=== PATIENT | female | born 1980 | race Caucasian/White ===

== ENCOUNTER 2023-07-08 16:44 | Emergency (ER) | payer OTHER, SELFPAY ==
[2023-07-08 16:50] VITALS: BP 123/88; PULSE 115; RESP 24; TEMP 37.3; O2SAT 97; BMI 32.0
--- NOTE | 2023-07-08 17:10 | ED_ITS ---
HPI - General Adult General Date Seen: 07/08/23 Chief complaint: Nausea/Vomiting Stated complaint: vomiting Time Seen by Provider: 07/08/23 17:03 Source: patient and RN notes reviewed Mode of arrival: ambulatory Limitations: no limitations History of Present Illness HPI narrative: Patient is a generally healthy 43-year-old woman, she works in a school, no specific ill exposures. She woke up in the middle the night with stomach upset and has had multiple episodes of nonbloody diarrhea, generalized stomach cramping, and some dry heaves or vomiting of phlegm or saliva although she says she does not think her entire stomach contents of,. She says she feels like she would feel better if she could vomit. She has not had a fever that she knows of. They did go to [place], returned about a week and half ago but nobody else has been sick and she did not have any symptoms until last night. No previous abdominal surgeries. She does not smoke or drink. Related Data Home Medications Medication Instructions Recorded Confirmed Prilosec 07/08/23 Allergies Allergy/AdvReac Type Severity Reaction Status Date / Time No Known Drug Allergies Allergy Verified 07/08/23 16:55 Review of Systems Status of ROS: Reports: 10 or more systems reviewed and unremarkable except as noted in History and below Exam Narrative: Exam Narrative: Vital signs as noted above. In general, an alert, nontoxic woman. Head: Normocephalic, atraumatic. Eyes: Pupils are equal reactive. Extraocular movements are full. Conjunctivae are normal. ENT: Mucous membranes are moist. Throat is normal. Neck: Supple without lymphadenopathy. Heart: Tachycardic and regular. Lungs: Clear bilaterally. No increased work of breathing, crackles or wheezes. Abdomen: Soft and nondistended. Diffuse mild tenderness without rebound guarding or rigidity. Bowel sounds present. Extremities: Well perfused. No edema. No calf tenderness. Pulses intact. Neurologic: Patient is alert and oriented to person and place. Speech is fluent. Face is symmetric. Moves all extremities equally. Affect: Normal. Skin: Warm and dry. Well perfused. Const: Vital Signs, click to edit/add: Vital Signs - 24 hr 07/08/23 16:50 07/08/23 18:07 Temperature 99.1 F Pulse Rate [Pulse Oximeter] 115 H 95 Respiratory Rate 24 18 Blood Pressure [Le ft Upper Arm] 123/88 137/90 H Pulse Oximetry 97 99 Oxygen Delivery Me thod Room Air Room Air Documenting provider has reviewed patient's vital signs: yes Course Course ED Course: Will go ahead and place an IV and give some fluids, Zofran, Toradol. Check some labs. Diagnostic considerations most likely this is a viral gastroenteritis, no focal abdominal tenderness, but of labs are significantly abnormal would consider other possibilities such as appendicitis, diverticulitis, colitis, inflammatory bowel disease etcetera. Labs are overall reassuring. Her white blood cell count is minimally elevated 11.5, CRP minimally elevated at 2.2. COVID influenza and RSV are negative. LFTs are normal, platelets are 327,000 and hemoglobin is 15.1. Her potassium is mildly low at 3.3, she was mildly acidotic with a CO2 of 17 but a normal gap. Blood sugar was 114. She is feeling improved after fluids, repeat vital signs show resolution of her tachycardia. Her lactate was normal at 0.8. Abdominal exam remains benign. Her nausea has resolved with Zofran. I think it is reasonable to treat at this time for presumed viral enteritis, discussed with her that the diarrhea may persist for several days but if she has diarrhea that goes for 7-10 days she should be seen again at that time consideration of stool studies could be undertaken. If at any time she has severe pain, high fevers, bloody stools, unusual rashes etcetera she should come back to the emergency department. Clear liquids for today, advance tomorrow as able. She is comfortable with that plan. Vital Signs Vital signs: Initial Vital Signs Temperature 99.1 F 07/08/23 16:50 Temperature Source Temporal Artery Scan 07/08/23 16:50 Pulse Rate 115 H 07/08/23 16:50 Respiratory Rate 07/08/23 16:50 Blood Pressure 123/88 07/08/23 16:50 Blood Pressure Mean 99 07/08/23 16:50 Blood Pressure Position Sitting 07/08/23 16:50 Pulse Oximetry 97 07/08/23 16:50 Oxygen Delivery Method Room Air 07/08/23 16:50 Vital Signs Temperature 99.1 F 07/08/23 16:50 Pulse Rate 115 H 07/08/23 16:50 Respiratory Rate 07/08/23 16:50 Blood Pressure 123/88 07/08/23 16:50 Pulse Oximetry 97 07/08/23 16:50 Oxygen Delivery Method Room Air 07/08/23 16:50 Temperature 99.1 F 07/08/23 16:50 Pulse Rate 95 07/08/23 18:07 Respiratory Rate 18 07/08/23 18:07 Blood Pressure 137/90 H 07/08/23 18:07 Pulse Oximetry 99 07/08/23 18:07 Oxygen Delivery Method Room Air 07/08/23 18:07 Medications Administered Medications: Discontinued Medications Generic Name Dose Route Start Last Admin Trade Name Freq PRN Reason Stop Dose Admin Sodium Chloride 1,000 mls @ 1,000 mls/hr 07/08/23 17:15 07/08/23 18:08 0.9 % Sodium Chloride 1000 Ml IV 07/08/23 18:14 Infused .Q1H CATIA Infusion Ketorolac Tromethamine 15 mg 07/08/23 17:08 07/08/23 17:26 Ketorolac 15 Mg/Ml Inj IVP 07/08/23 17:09 15 mg ONCE ONE Administration Ondansetron HCl 4 mg 07/08/23 17:08 07/08/23 17:26 Ondansetron 2 Mg/Ml Inj IVP 07/08/23 17:09 4 mg ONCE ONE Administration Medical Decision Making Lab Data Labs: Lab Results 07/08/23 07/08/23 Range/Units 16:59 17:24 WBC 11.51 H (4.50-11.00) K/uL RBC 5.22 H (4.00-5.20) m/uL Hgb 15.1 (12.0-16.0) gm/dL Hct 44.3 (33.0-51.0) % MCV 85 (80-100) fL MCH 29 (26-34) pg MCHC 34 (32-36) gm/dL RDW Coeff of Amol 12.8 (11.5-15.5) % Plt Count 327 (140-440) K/uL Neut % (Auto) 84.3 H (42.0-72.0) % Lymph % (Auto) 7.4 L (20-44) % [place] % (Auto) 6.9 (0.0-11.0) % Eos % (Auto) 0.3 (0.0-7.0) % Baso % (Auto) 0.1 (0.0-3.0) % Neut # (Auto) 9.70 H (1.7-7.0) K/uL Lymph # (Auto) 0.90 (0.90-2.90) K/uL [place] # (Auto) 0.80 (0.00-0.90) K/UL Eos # (Auto) 0.00 (0.00-0.50) K/uL Baso # (Auto) 0.00 (0.00-0.30) K/uL Abs Immat Gran (auto) 0.10 (0.00-0.30) K/uL Imm/Tot Granulo (auto) 1.0 % Sodium 138 (135-149) mmol/L Potassium 3.3 L (3.6-5.1) mmol/L Chloride 108 (96-114) mmol/L Carbon Dioxide 17 L (20-32) mmol/L Anion Gap 13 (7-15) mEq/L BUN 14 (5-24) mg/dL Creatinine 0.6 (0.5-1.5) mg/dL Estimated Creat Clear 96.60 Estimated GFR 115 ml/min Glucose 114 (60-115) mg/dL Lactate 0.8 (0.5-1.9) mmol/L Calcium 8.4 (8.4-10.6) mg/dL Total Bilirubin 1.0 (0.1-1.5) mg/dL Direct Bilirubin 0.1 (0.0-0.5) mg/dL AST 24 (12-35) U/L ALT 24 (4-35) U/L Alkaline Phosphatase 54 (40-150) U/L C-Reactive Protein 2.2 H (0.5-1.0) mg/dL Total Protein 7.3 (6.0-8.3) g/dL Albumin 4.3 (3.3-5.0) g/dL SARS-CoV-2 (PCR) Negative SARS-CoV-2 (Negative) Influenza Type A (PCR) Negative PCR FLU A (Negative) Influenza Type B (PCR) Negative PCR FLU B (Negative) RSV (PCR) Negative PCR RSV (Negative) Discharge Plan Discharge Clinical Impression: Gastroenteritis Patient Disposition: Home, Self-Care Condition: Improved Instructions: Acute Diarrhea (ED) Additional Instructions: Clear liquids today, advance diet as able. Zofran if needed for nausea/vomiting. Diarrhea may persist for several days but should gradually improve. If you still have diarrhea in 7-10 days you should be seen again. Labs today are reassuring, symptoms are likely viral, but you should be seen sooner for severe abdominal pain, high fevers, unusual rashes, bloody stools or other significant changes. Activity Level: No Restrictions Discharge Diet: Regular Prescriptions: No Action Prilosec Follow Up/Referrals: Provider,Not a Local [Primary Care Provider] - Stand Alone Forms: [employer] Info Instructions
[2023-07-08 17:26] LABS: Lactate* 0.8 mmol/L (0.5-1.9)
[2023-07-08] MEDS: ONDANSETRON 2 MG/ML inj 4 MG IVP (17:26)
[2023-07-08] MEDS: KETOROLAC 15 MG/ML inj IVP (17:26)
[2023-07-08] MEDS: 0.9 % SODIUM CHLORIDE 1000 ml 1,000 ML IV (17:27)
[2023-07-08 17:37] LABS: Basophils Percent Auto 0.1 % (0.0-3.0); Eosinophils Percent Auto 0.3 % (0.0-7.0); Hematocrit 44.3 % (33.0-51.0); Hemoglobin* 15.1 gm/dL (12.0-16.0); Lymphocytes Percent Auto 7.4 % (20-44); Mean Corpuscular HGB Conc 34 gm/dL (32-36); Mean Corpuscular Hemoglobin 29 pg (26-34); Mean Corpuscular Volume 85 fL (80-100); Monocytes Percent Auto 6.9 % (0.0-11.0); Neutrophils Percent Auto 84.3 % (42.0-72.0); Platelet Count* 327 K/uL (140-440); RDW Coefficient of Variation % 12.8 % (11.5-15.5); Red Blood Count 5.22 m/uL (4.00-5.20); White Blood Count* 11.51 K/uL (4.50-11.00)
[2023-07-08 17:40] LABS: Albumin* 4.3 g/dL (3.3-5.0); Chloride* 108 mmol/L (96-114); Slide Review Reflex No
[2023-07-08 17:41] LABS: Potassium* 3.3 mmol/L (3.6-5.1); Sodium* 138 mmol/L (135-149)
[2023-07-08 17:43] LABS: Creatinine* 0.6 mg/dL (0.5-1.5); Estimated Glomerular Filt Rate 115 ml/min
[2023-07-08 17:44] LABS: Alanine Aminotransferase* 24 U/L (4-35); Alkaline Phosphatase* 54 U/L (40-150); Anion Gap 13 mEq/L (7-15); Aspartate Amino Transferase* 24 U/L (12-35); Bilirubin Direct* 0.1 mg/dL (0.0-0.5); Blood Urea Nitrogen* 14 mg/dL (5-24); Calcium* 8.4 mg/dL (8.4-10.6); Carbon Dioxide* 17 mmol/L (20-32); Glucose* 114 mg/dL (60-115); Total Protein* 7.3 g/dL (6.0-8.3)
[2023-07-08 17:46] LABS: C Reactive Protein* 2.2 mg/dL (0.5-1.0)
[2023-07-08 17:47] LABS: PCR FLU A Negative PCR FLU A (Negative); PCR FLU B Negative PCR FLU B (Negative); PCR RSV Negative PCR RSV (Negative); SARS PCR* Negative SARS-CoV-2 (Negative)
[2023-07-08 18:07] VITALS: BP 137/90; PULSE 95; RESP 18; O2SAT 99
== END 2023-07-08 18:17 | disposition home or self-care (01) ==
PROVIDERS: Emergency Provider Emergency Medicine
DX: K52.9 Noninfective gastroenteritis and colitis, unspecified (principal)
CPT/HCPCS: 36415; 80048; 80076; 83605; 85025; 86140; 87631; 96374; 96375; 99283; 99284; J1885; J2405; J7030